=== PATIENT | male | born 2000 | race Caucasian/White ===

== ENCOUNTER 2025-07-03 22:32 | Emergency (ER) | payer OTHER ==
[~2025-07-03] VITALS: Ht 180.3 cm; Wt 65.0 kg
[2025-07-04 02:15] LABS: BLOOD/HGB, URINE NEGATIVE (Negative); KETONE, URINE NEGATIVE (Negative); LEUK ESTERASE, URINE NEGATIVE (negative); NITRITE, URINE NEGATIVE (negative)
[2025-07-04 02:36] VITALS: BP 1221/77
[2025-07-04 03:45] LABS: N. GONORRRHOEAE BY PCR NOT DETECTED (NOT DETECT)
== END 2025-07-04 02:37 | disposition home or self-care (01) ==
LOC: ED 22:32
PROVIDERS: Internal Medicine
DX: N48.89 Other specified disorders of penis (principal)
CPT/HCPCS: 81003; 99282